=== PATIENT | male | born 1985 | race Caucasian/White ===

== ENCOUNTER → 2017-06-02 | Outpatient (CLI) | payer OTHER ==
[~2017-06-02] MED LIST: ANTIBIOTIC O500 U/GM; AUGMENTIN 875 M1 TA1 PO; BACITRACIN-NEO0.9 GM T; CLONIDINE0.1 MG PO; CORTISPORIN 1%-10 M1 OT; DARVOCET N 1001 TAB PO; KEFLEX500 MG PO; NKHM; PERCOCET 325 MG1 TA2 PO; PERCOCET 325 MG1 TA7 PO; VASOTEC10 MG PO
[2017-06-02 16:03] LABS: BASO # 0.1 10*3/uL (0.0-0.1); BASO % 0.6 % (0.0-1.0); EOS # 0.1 10*3/uL (0.0-0.4); EOS % 0.9 % (1.0-4.0); HEMATOCRIT 49.2 % (42.0-52.0); HEMOGLOBIN 16.7 g/dl (14.0-18.0); LYMPH # 2.1 10*3/uL (1.3-4.4); LYMPH % 17.6 % (27.0-41.0); MEAN CELL VOLUME 84.8 fl (80.0-94.0); MEAN CORPUSCULAR HGB 28.8 pg (27.0-31.0); MEAN CORPUSCULAR HGB CONC 33.9 g/dl (33.0-37.0); MEAN PLATELET VOLUME 10.5 fl (9.6-12.3); MONO # 0.6 10*3/uL (0.1-1.0); NEUT # 8.8 10*3/uL (2.3-7.9); NEUT % 75.4 % (47.0-73.0); PLATELET COUNT AUTOMATED 308 10*3/uL (130-400); RED CELL DISTRI WIDTH 13.2 % (0-14.5); WHITE BLOOD COUNT 11.6 10*3/uL (4.8-10.8)
[2017-06-02 16:22] LABS: ALBUMIN 4.3 gm/dl (3.1-4.5); BUN 11 mg/dl (7-24); CHLORIDE 103 mmol/L (98-107); POTASSIUM 3.6 mmol/L (3.5-5.1); SODIUM 141 mmol/L (136-145)
[2017-06-02 16:35] LABS: ALKALINE PHOSPHATASE 115 U/L (45-117); CHOLESTEROL 280 mg/dL (<200); CREATININE 1.05 mg/dL (0.70-1.30); HDL CHOLESTEROL 44 mg/dl (40-60); LDL CHOLESTEROL 202 mg/dL (9-159); SGOT/AST 27 IU/L (3-35); SGPT/ALT 45 U/L (12-78); TOTAL PROTEIN 8.2 gm/dL (6.4-8.2); TRIGLYCERIDES 171 mg/dl (<150); VLDL CHOLESTEROL 34 mg/dL (6-40)
== END | disposition home or self-care (01) ==
LOC: LAB 15:30
PROVIDERS: Internal Medicine
DX: I10 Essential (primary) hypertension (principal); E66.01 Morbid (severe) obesity due to excess calories; R94.31 Abnormal electrocardiogram [ECG] [EKG]; F15.90 Other stimulant use, unspecified, uncomplicated; Z79.899 Other long term (current) drug therapy

== ENCOUNTER → 2017-07-01 | Outpatient (CLI) | payer OTHER | END | disposition home or self-care (01) | LOC: CARD 01:32 | DX: I08.1 Rheumatic disorders of both mitral and tricuspid valves (principal); I10 Essential (primary) hypertension; E78.01 Familial hypercholesterolemia; R94.31 Abnormal electrocardiogram [ECG] [EKG]; Z79.899 Other long term (current) drug therapy ==

== ENCOUNTER 2017-08-06 16:42 | Emergency (ER) | payer OTHER ==
[~2017-08-06] VITALS: Ht 152.4 cm; Wt 136.1 kg
[2017-08-06 17:01] LABS: BILIRUBIN NEGATIVE (NEGATIVE); BLOOD NEGATIVE (NEGATIVE); CLARITY CLEAR (CLEAR); COLOR YELLOW (YELLOW); GLUCOSE NEGATIVE (NEGATIVE); KETONE NEGATIVE (NEGATIVE); LEUKO ESTERASE NEGATIVE (NEGATIVE); NITRITE NEGATIVE (NEGATIVE); PH 5.5 (5.0-9.0); SPECIFIC GRAVITY >= 1.030 (1.005-1.030); UROBILINOGEN 0.2 E.U./dl (0.2-1.0)
[2017-08-06 17:07] LABS: URINE AMPHETAMINES > 1000 (1000ng/ml); URINE BARBITURATES < 200 (200ng/ml); URINE BENZODIAZEPINES > 200 (200ng/ml); URINE CANNABINOIDS (THC) > 50 (50ng/ml); URINE COCAINE < 300 (300ng/ml); URINE METHADONE < 300 (300ng/ml); URINE OPIATES < 300 (300ng/ml)
[2017-08-06 17:08] LABS: URINE PHENCYCLIDINE < 25 (25ng/ml)
[2017-08-06 17:10] LABS: BACTERIA 2+; EPITHELIAL CELLS 0-2; MUCOUS TRACE; RBC 0-2 rbc/hpf (0-2)
[2017-08-06 17:23] LABS: ACT PARTIAL THROMBO TIME 21.8 SECONDS (20.8-31.5); INTERNATIONAL NORM RATIO 1.2 (2.0-3.5)
[2017-08-06 17:32] LABS: ALBUMIN 3.7 gm/dl (3.1-4.5); ALKALINE PHOSPHATASE 127 U/L (45-117); BUN 13 mg/dl (7-24); CHLORIDE 102 mmol/L (98-107); SGOT/AST 856 IU/L (3-35); SGPT/ALT 881 U/L (12-78); SODIUM 143 mmol/L (136-145); TOTAL PROTEIN 7.5 gm/dL (6.4-8.2)
[2017-08-06 17:33] LABS: ETHYL ALCOHOL < 3.0 mg/dl (<3)
[2017-08-06 17:34] LABS: ACETAMINOPHEN (TYLENOL) < 2.0 ug/ml (10-30)
[2017-08-06 17:43] LABS: HEMATOCRIT 48.9 % (42.0-52.0); MEAN CELL VOLUME 94.4 fl (80.0-94.0); MEAN CORPUSCULAR HGB CONC 30.7 g/dl (33.0-37.0); MEAN PLATELET VOLUME 10.9 fl (9.6-12.3); NUCLEATED RED BLOOD CELL 0.1 % (0.0-0.0); PLATELET COUNT AUTOMATED 436 10*3/uL (130-400); RED BLOOD COUNT 5.18 10*6/uL (4.50-5.90); RED CELL DISTRI WIDTH 13.4 % (0-14.5); WHITE BLOOD COUNT 31.6 10*3/uL (4.8-10.8)
[2017-08-06] MEDS ORDERED: AMITRIPTYLINE50 MG PO (17:59)
[2017-08-06] MEDS ORDERED: LEXAPRO20 MG PO (18:00)
[2017-08-06] MEDS ORDERED: LAMICTAL ODT100 MG MM (18:00)
[2017-08-06 18:04] LABS: PLATELET SUFFICIENCY HIGH (NORMAL); TOTAL CELLS COUNTED 100 #CELLS
[2017-08-06 18:05] LABS: POLYCHROMASIA SLIGHT
== END 2017-08-06 21:25 | disposition short-term general hospital (02) ==
LOC: ED 16:42
PROVIDERS: Emergency Medicine
DX: A41.89 Other specified sepsis (principal); R65.21 Severe sepsis with septic shock; T50.991A Poisoning by other drugs, medicaments and biological substances, accidental (unintentional), initial encounter; T17.898A Other foreign object in other parts of respiratory tract causing other injury, initial encounter; J96.90 Respiratory failure, unspecified, unspecified whether with hypoxia or hypercapnia; F12.10 Cannabis abuse, uncomplicated; E66.01 Morbid (severe) obesity due to excess calories; Z79.899 Other long term (current) drug therapy; Z91.030 Bee allergy status; Z91.040 Latex allergy status; Y92.9 Unspecified place or not applicable

== ENCOUNTER 2017-09-25 21:55 | Inpatient (IN) | payer OTHER ==
[~2017-09-25] VITALS: Ht 187.9 cm; Wt 152.9 kg
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
--- NOTE | ~2017-09-25 | PR ---
[place], [place] PROGRESS NOTE NAME: [facility]MANUEL [id number] UNIT #: [id number] ROOM: 419 DOCTOR: FAITH LADD,MARIEL Allison BIRTHDATE: [birth year] DOS: 09/26/2017 Via the [facility] One Call Transfer Service Line, the care team here did discuss the case with Dr. Hurd and with Dr. Adam, the orthopedic surgeon [facility]. They are aware of my plan to surgically irrigate and debride the hip joint here locally and then transfer the patient to their care at [facility]. They endorse that plan and are on board with it. Mariel Cuevas MD CM:PNTRANS [id number] MARIEL CUEVAS MD 09/26/17 2159 interface
--- NOTE | ~2017-09-25 | PR ---
[place], [place] PROGRESS NOTE NAME: [facility]EL [facility] [id number] UNIT #: [id number] ROOM: 419 DOCTOR: KINZA BADILLO MD BIRTHDATE: [birth year] DOS: 09/25/2017 This is a followup from inpatient consult note. I did talk to the radiology physician by phone immediately following my interview with Sofiya Emanuel this morning. I quickly put a hip CT scan and hip aspiration fluoroscopy guided as orders, via the nurse, Baylee, into the computer system. I personally called down and discussed the case with Dr. Rodriguez, the radiology physician to facilitate getting the case done as soon as possible. After the aspiration, I did communicate with Dr. Rodriguez directly by phone. He aspirated back pus and therefore, the patient, by definition, has a right septic hip joint. I did instruct that the aspirate be sent for Gram stain, culture, cell count, and crystals. I did talk to Sofiya about the pulse in his hip joint. Naturally, he is upset. I did also let him know that, unfortunately, [place] has no orthopedic surgeon foundation engineer this weekend. I was foundation engineer this week ending on Friday today. I am not here this weekend. My colleague, Dr. Pereira, is also not here this weekend. Therefore, [place] has no orthopedic surgeon this weekend. I do not think it is safe for the patient to stay in this hospital without orthopedic surgery coverage. My plan is to perform an irrigation and debridement of the hip joint via surgery in the operating room today as soon as possible. My plan is to transfer the patient to [facility] after the surgery where he can recover under the watchful eye of orthopedic surgeons there. The patient may need a second or third surgical procedure and this way, he is in the right place to have that care if needed. I did talk to Sofiya about the possibility of simply transferring him without performing the surgery. Sofiya actually preferred this because he did not want to have surgery and then have a long ambulance ride. However, I was able to talk him out of that. I explained to him that time is of the essence with an infection, and the sooner we can get into the hip joint to wash it out the better. He understands. I did talk to Sofiya about the risks of this infection already, at baseline, he has got degenerative hip arthritis. His x-ray is far advanced arthrosis beyond his age. Having an infection and an already degenerative hip, puts him at even worse prognosis. There is a significant hip morbidity following this event, accelerated arthritis, chronic hip pain, osteomyelitis, need for multiple washouts, need for Girdlestone arthroplasty, need for hip fusion, need for resection arthroplasty, or all possible complications. The patient understands. He understands this is a severe infection in the hip based on the fact that kaleb pus was aspirated. He is also aware that his baseline hip function is poor based on the x-ray and therefore he has got a high risk for complication. Other risks of complications include blood clot, pulmonary embolus, and other risks. The patient does have a history of MRSA. He had a MRSA infection in his right ankle in 2008. This led to multiple surgeries and ultimately fusion in his [place], [place] PROGRESS NOTE NAME: [facility]EL [facility] [id number] UNIT #: [id number] ROOM: 419 DOCTOR: KINZA BADILLO MD BIRTHDATE: [birth year] right ankle. The fact that he had difficult time with MRSA portends a worse prognosis as well regarding his right hip. I did review all the risks and benefits with the patient. My proposed plan is irrigation and debridement today in the operating room as soon as possible, followed by transfer to [facility]. The patient agrees with this plan. He is aware of the risks. Sofiya had the opportunity to ask me questions and he understands and agrees with the treatment plan as I have outlined it. Kinza Badillo MD CM:PNTRANS [id number] KINZA BADILLO MD 09/26/172131 interface
--- NOTE | ~2017-09-25 | O ---
[place], [place] OPERATIVE NOTE NAME: SOFIYA EMANUEL UNIT #: [id number] ROOM: 419 DOCTOR: MARIEL CUEVAS MD BIRTHDATE: [birth year] DOS: 09/26/2017 PREOPERATIVE DIAGNOSIS: Right septic hip joint. POSTOPERATIVE DIAGNOSIS: Right septic hip joint. SPECIMENS: 1. Right hip joint pus sent for aerobic and anaerobic culture. 2. Right hip synovial tissue sent to pathology. 3. Right hip synovial tissue sent to microbiology for aerobic and anaerobic culture. ANESTHESIA: General. BLOOD LOSS: 75 mL. ATTENDING PHYSICIAN: Mariel Cuevas M.D. INDICATIONS: This is a pleasant 32-year-old man who presented last evening with a right septic hip joint. Of note, I received the consult around 8:00 a.m. in the morning. I saw the patient within minutes of obtaining the consult. I identified this is potentially septic hip joint. Immediately, I was on the phone with Radiology coordinating a hip CT and a fluoro-guided joint aspiration. I personally conversed with the radiology physician after the procedure. He did aspirate gross pus. At that point, I booked the case in the operating room for a right hip irrigation and debridement. There was a little bit of a delay because the patient was refusing surgery. I did have two conversations with him over the space about an hour. I was able to convince him that surgical irrigation and debridement was in his best interest. Of note, there is no Orthopedic Surgery recovery at [facility] this weekend. Therefore, the patient cannot stay at this hospital tonight and need to be transferred to [facility] in [place]. This is the hospital of the patient's choice as he has been there before. I did talk to Dr. Sharpe, the one call Critical access hospital physician. I talked to her personally and gave her my cell phone number, . I want to make sure that their care team can contact me at any time with any questions or concerns. I did clear my plan with the [facility] team including Dr. Adam of Orthopedic Surgery. My plan is that I performed the irrigation and debridement here on site given the fact that this is a septic hip and is an orthopedic emergency. After the patient comes out of surgery, he will be transferred to [facility] to recover. He may need another washout. He may need further surgical procedure that he can recover under their care. I cannot leave him here postop because there is no orthopedic surgeon here to covering. Therefore, the plan was irrigation and debridement here by me followed by transfer to [facility] for recovery. The [facility] team has given their blessing for this. I did explain this plan to the patient as well. I also explained that I am here in [place] about [address] Periera is usually here on the other [place], [place] OPERATIVE NOTE NAME: SOFIYA EMANUEL UNIT #: [id number] ROOM: 419 DOCTOR: MARIEL CUEVAS MD BIRTHDATE: [birth year] weeks, but sometimes there is no orthopedic surgeon. The patient is aware of this. He wants to proceed here with surgery for me after I explained how serious septic hip joint is. I explained a septic hip is an orthopedic emergency. I explained that he already has degenerative arthritis in his hip and therefore, given the fact he has got septic arthritis, he can expect to have much worse hip function. The risk here is for very bad arthritis, osteomyelitis, spread of the infection to bone, chronic pain, need for a second or third surgical procedure, blood clot, pulmonary embolus and other risks. Of note, he has got a history of morbid obesity. He weighs over 350 pounds with a BMI over 40. He also has a superficial leg wound on his left leg. He also has a history of MRSA infection in his right ankle, which led to multiple surgeries, tissue transfers and an ankle fusion. All of this puts him at a much higher risk for worse complication. It is very likely he never has a normal hip joint again and that he has got permanent disability here. He may need early total hip replacement or even a hip fusion or a Girdlestone resection arthroplasty. I explained all this to the patient. He had the opportunity to ask any questions. He understands how severe it is. He understands the need for transfer after surgery. He understands the need to proceed immediately right now with me in this hospital since time is of the essence due to the fact that it is an infection. His questions were answered. He understands and agrees with the treatment as outlined. Informed consent was signed at the bedside for right hip irrigation and debridement. DESCRIPTION OF PROCEDURE: The patient was identified as correct patient in preoperative holding area. He identified the right hip as correct site. I marked the right hip. He was brought back to the operating theater where anesthesia was induced without complication. All bony prominences were appropriately padded. He was placed into a lateral position with the left side down and the right side up. The right leg was prepped and draped in a sterile fashion. Antibiotics were held. (The patient has been on IV antibiotics since admission, but I held preoperative antibiotics until after cultures). A timeout was performed confirming correct patient, correct laterality and correct procedure. I made the skin incision directly over the greater trochanter extending it in line with the femur. I dissected just the soft tissues directed to the level of the IT band. I opened IT band in line with the skin incision. I then split the abductors a 50:50 and easily identified the gluteus minimus and the hip capsule. I then progressively externally rotated the leg and peeled off of this anterior sleeve of tissues exposing the hip joint capsule. At this point, we then opened the hip joint capsule and immediate pus flowed out of the hip joint. I used a culture tube and cultured the fluid. I then released the capsule all the way up the neck to the femoral head. I made sure to dissect so that I could see both inferior and superior edges of the intracapsular femoral neck. I also could visualize the femoral head. I was rotating the hip and could feel the acetabulum and the femoral head. Therefore, I was sure that had a great decompression of the hip joint. Again, a lot of pus flowed out of the hip joint. I also progressively externally rotated and internally rotated and flexed and extended the hip to really get as much as we could. At this point, I then used pulse lavage and washed out the hip joint with 6 liters of irrigation fluid. During washout, I made sure to ultimately the position of the [place], [place] OPERATIVE NOTE NAME: SOFIYA EMANUEL J UNIT #: [id number] ROOM: [facility] DOCTOR: MARIEL CUEVAS MD BIRTHDATE: [birth year] between the femoral head, the superior femoral neck and the inferior femoral neck. I also progressively moved around the hip to make sure I washed out as much of the hip joint pus as possible. At this point, I took a look in the hip joint and there was no more pus. The hip was moving well. I then closed the capsule with #5 Ethibond interrupted. I then closed the abductors with interrupted #5 Ethibond. I then closed the IT band with interrupted #5 Ethibond. Subcutaneous tissues were closed with 0 Vicryl and 2-0 Vicryl. Skin was then stapled. A sterile dressing was applied. He tolerated the procedure well with no immediate complications. The patient is said to be transferred to [facility] once he stabilizes. My cell phone number is [phone]. [facility] can contact me at any time with any questions or concerns including if they have trouble tracking down data or tracking down cultures I can help with that. I did express to Dr. Sharpe, of one call at [facility], so that she understands. The patient is a very high risk for complications as noted above. Postop plan is as follows: 1. Touchdown weightbearing right lower extremity. 2. DVT prophylaxis per the hospitalist service. 3. Transferred to [facility] when stable, the hospitalist services coordinating this. 4. The patient remains at high risk for complication. Mariel Cuevas MD CM:OPRECORD:OPERATIVE NOTE [id number] MARIEL CUEVAS MD 10/01/17 1413 interface
[~2017-09-25 21:55] MED LIST changes: +AMITRIPTYLINE50 MG PO; +LAMICTAL ODT100 MG MM; +LEXAPRO20 MG PO
[2017-09-25 22:39] LABS: BASO # 0.1 10*3/uL (0.0-0.1); BASO % 0.4 % (0.0-1.0); EOS # 0.3 10*3/uL (0.0-0.4); EOS % 1.5 % (1.0-4.0); HEMATOCRIT 41.5 % (42.0-52.0); HEMOGLOBIN 13.6 g/dl (14.0-18.0); LYMPH # 2.1 10*3/uL (1.3-4.4); LYMPH % 12.2 % (27.0-41.0); MEAN CELL VOLUME 86.8 fl (80.0-94.0); MEAN CORPUSCULAR HGB 28.5 pg (27.0-31.0); MEAN CORPUSCULAR HGB CONC 32.8 g/dl (33.0-37.0); MEAN PLATELET VOLUME 10.7 fl (9.6-12.3); MONO % 5.6 % (3.0-9.0); NEUT # 13.5 10*3/uL (2.3-7.9); PLATELET COUNT AUTOMATED 333 10*3/uL (130-400); RED BLOOD COUNT 4.78 10*6/uL (4.50-5.90); RED CELL DISTRI WIDTH 12.7 % (0-14.5); WHITE BLOOD COUNT 16.9 10*3/uL (4.8-10.8)
[2017-09-25 22:58] LABS: ALBUMIN 3.9 gm/dl (3.1-4.5); ALKALINE PHOSPHATASE 132 U/L (45-117); BUN 6 mg/dl (7-24); CHLORIDE 107 mmol/L (98-107); CREATININE 0.92 mg/dL (0.70-1.30); POTASSIUM 3.2 mmol/L (3.5-5.1); SGOT/AST 13 IU/L (3-35); SGPT/ALT 20 U/L (12-78); SODIUM 140 mmol/L (136-145); TOTAL PROTEIN 7.6 gm/dL (6.4-8.2)
[2017-09-25 23:51] VITALS: BP 167/77
[2017-09-26] VITALS (11 sets, daily range): BP systolic 129–170; BP diastolic 53–111
[2017-09-26 06:03] LABS: ALBUMIN 3.3 gm/dl (3.1-4.5); ALKALINE PHOSPHATASE 117 U/L (45-117); BUN 5 mg/dl (7-24); CHLORIDE 107 mmol/L (98-107); CHOLESTEROL 132 mg/dL (<200); CREATININE 0.76 mg/dL (0.70-1.30); HDL CHOLESTEROL 45 mg/dl (40-60); LDL CHOLESTEROL 73 mg/dL (9-159); PHOSPHOROUS 2.8 mg/dL (2.5-4.9); POTASSIUM 3.5 mmol/L (3.5-5.1); SGOT/AST 12 IU/L (3-35); SGPT/ALT 15 U/L (12-78); SODIUM 142 mmol/L (136-145); TOTAL PROTEIN 6.5 gm/dL (6.4-8.2); TRIGLYCERIDES 68 mg/dl (<150); VLDL CHOLESTEROL 14 mg/dL (6-40)
[2017-09-26 06:12] LABS: TROPONIN I < 0.015 ng/ml (<0.045)
[2017-09-26] MEDS ORDERED: METOPROLOL TART50 M1 PO (10:11)
[2017-09-26] MEDS ORDERED: HYDROCHLOROTHIA25 M1 PO (10:11)
[2017-09-26] MEDS ORDERED: ZESTRIL20 MG PO (10:12)
[2017-09-26] MEDS ORDERED: LIPITOR40 MG PO (10:12)
[2017-09-26] MEDS ORDERED: REXULTI3 MG PO ×2 (10:13→10:25)
[2017-09-26] MEDS ORDERED: ADDERALL 20 MG20 MG PO ×2 (10:19→10:24)
[2017-09-26] MEDS ORDERED: VALIUM10 MG PO (10:24)
[2017-09-26] MEDS ORDERED: LAMICTAL100 MG PO (10:25)
[2017-09-26] MEDS ORDERED: LEXAPRO20 MG PO (10:25)
[2017-09-26 13:39] LABS: BF MONOCYTES 1 %; BF NEUTROPHILS 99 %
[2017-09-26 13:40] LABS: BODY FLUID WBC 82125 /uL
== END 2017-09-26 20:54 | disposition short-term general hospital (02) | DRG 872 ==
LOC: ED 21:55 → 4E 23:32 → EDHOLD 23:32 → 4E 23:58
PROVIDERS: Internal Medicine Hospice and Palliative Medicine; Orthopaedic Surgery; Physician Assistant
PROC: 0S993ZZ Drainage of Right Hip Joint, Percutaneous Approach (ICD-10-PCS; principal; 2017-09-26)
DX: A41.9 Sepsis, unspecified organism (principal); M00.9 Pyogenic arthritis, unspecified; G90.50 Complex regional pain syndrome I, unspecified; F32.9 Major depressive disorder, single episode, unspecified; F98.8 Other specified behavioral and emotional disorders with onset usually occurring in childhood and adolescence; I10 Essential (primary) hypertension; F41.1 Generalized anxiety disorder; E78.5 Hyperlipidemia, unspecified; E78.2 Mixed hyperlipidemia; M06.9 Rheumatoid arthritis, unspecified; E66.01 Morbid (severe) obesity due to excess calories; R00.0 Tachycardia, unspecified; D72.810 Lymphocytopenia; D64.9 Anemia, unspecified; E87.6 Hypokalemia; R73.9 Hyperglycemia, unspecified; R74.8 Abnormal levels of other serum enzymes; R70.0 Elevated erythrocyte sedimentation rate; M15.9 Polyosteoarthritis, unspecified; Z91.030 Bee allergy status; Z91.040 Latex allergy status; Z82.49 Family history of ischemic heart disease and other diseases of the circulatory system; Z79.899 Other long term (current) drug therapy; Z72.89 Other problems related to lifestyle

== ENCOUNTER → 2017-10-28 | Outpatient (CLI) | payer OTHER ==
[~2017-10-28] MED LIST changes: +ADDERALL 20 MG20 MG PO; +HYDROCHLOROTHIA25 M1 PO; +LAMICTAL100 MG PO; +LIPITOR40 MG PO; +METOPROLOL TART50 M1 PO; +REXULTI3 MG PO; +VALIUM10 MG PO; +ZESTRIL20 MG PO
== END | disposition home or self-care (01) ==
LOC: ORTHO 00:54
DX: M25.551 Pain in right hip (principal)

== ENCOUNTER → 2017-11-21 | Outpatient (CLI) | payer OTHER ==
[2017-11-21 15:41] LABS: BASO # 0.1 10*3/uL (0.0-0.1); BASO % 0.5 % (0.0-1.0); EOS # 0.3 10*3/uL (0.0-0.4); EOS % 2.4 % (1.0-4.0); HEMATOCRIT 41.7 % (42.0-52.0); HEMOGLOBIN 13.5 g/dl (14.0-18.0); LYMPH # 2.1 10*3/uL (1.3-4.4); LYMPH % 17.3 % (27.0-41.0); MEAN CORPUSCULAR HGB 27.8 pg (27.0-31.0); MEAN CORPUSCULAR HGB CONC 32.4 g/dl (33.0-37.0); MEAN PLATELET VOLUME 10.8 fl (9.6-12.3); MONO # 0.5 10*3/uL (0.1-1.0); MONO % 4.4 % (3.0-9.0); NEUT % 75.1 % (47.0-73.0); PLATELET COUNT AUTOMATED 309 10*3/uL (130-400); RED BLOOD COUNT 4.85 10*6/uL (4.50-5.90); RED CELL DISTRI WIDTH 12.8 % (0-14.5)
== END | disposition home or self-care (01) ==
LOC: LAB 02:15 → ORTHO 02:15
PROVIDERS: Orthopaedic Surgery
DX: E78.5 Hyperlipidemia, unspecified (principal); T81.4XXD Infection following a procedure, subsequent encounter; Z68.42 Body mass index [BMI] 45.0-49.9, adult

== ENCOUNTER 2017-11-25 22:20 | Emergency (ER) | payer OTHER ==
[~2017-11-25] VITALS: Ht 187.9 cm; Wt 163.3 kg
[2017-11-26 00:35] LABS: BASO # 0.1 10*3/uL (0.0-0.1); BASO % 0.6 % (0.0-1.0); EOS # 0.3 10*3/uL (0.0-0.4); EOS % 2.8 % (1.0-4.0); HEMATOCRIT 38.7 % (42.0-52.0); HEMOGLOBIN 12.7 g/dl (14.0-18.0); LYMPH # 3.3 10*3/uL (1.3-4.4); LYMPH % 31.8 % (27.0-41.0); MEAN CELL VOLUME 85.4 fl (80.0-94.0); MEAN CORPUSCULAR HGB CONC 32.8 g/dl (33.0-37.0); MEAN PLATELET VOLUME 10.6 fl (9.6-12.3); MONO # 0.6 10*3/uL (0.1-1.0); MONO % 5.7 % (3.0-9.0); NEUT # 6.1 10*3/uL (2.3-7.9); NEUT % 58.7 % (47.0-73.0); PLATELET COUNT AUTOMATED 325 10*3/uL (130-400); RED BLOOD COUNT 4.53 10*6/uL (4.50-5.90); RED CELL DISTRI WIDTH 12.9 % (0-14.5); WHITE BLOOD COUNT 10.3 10*3/uL (4.8-10.8)
[2017-11-26 00:50] LABS: ALBUMIN 3.5 gm/dl (3.1-4.5); ALKALINE PHOSPHATASE 131 U/L (45-117); BUN 10 mg/dl (7-24); CHLORIDE 106 mmol/L (98-107); CREATININE 1.12 mg/dL (0.70-1.30); POTASSIUM 3.1 mmol/L (3.5-5.1); SGOT/AST 18 IU/L (3-35); SGPT/ALT 30 U/L (12-78); SODIUM 143 mmol/L (136-145)
== END 2017-11-26 01:24 | disposition home or self-care (01) ==
LOC: ED 22:20
PROVIDERS: Nurse Practitioner
DX: M79.2 Neuralgia and neuritis, unspecified (principal); M25.551 Pain in right hip; Z91.030 Bee allergy status; Z79.899 Other long term (current) drug therapy

== ENCOUNTER 2018-03-25 09:01 | Emergency (ER) | payer OTHER ==
[~2018-03-25] VITALS: Ht 190.5 cm; Wt 149.7 kg
[2018-03-25] MEDS ORDERED: NORCO 5-325 TA1 EACH PO (11:20)
[2018-03-25] MEDS ORDERED: NAPROSYN500 MG PO (11:20)
== END 2018-03-25 14:25 | disposition home or self-care (01) ==
LOC: ED 09:01
DX: S42.251A Displaced fracture of greater tuberosity of right humerus, initial encounter for closed fracture (principal); S43.014A Anterior dislocation of right humerus, initial encounter; I10 Essential (primary) hypertension; E66.1 Drug-induced obesity; Z91.030 Bee allergy status; Z91.041 Radiographic dye allergy status; Z79.899 Other long term (current) drug therapy; W03.XXXA Other fall on same level due to collision with another person, initial encounter; Y93.89 Activity, other specified; Y92.89 Other specified places as the place of occurrence of the external cause; Y99.8 Other external cause status

== ENCOUNTER → 2020-01-24 | Outpatient (CLI) | payer OTHER ==
[~2020-01-24] MED LIST changes: +NAPROSYN500 MG PO; +NORCO 5-325 TA1 EACH PO
== END | disposition home or self-care (01) ==
LOC: CARD 08:35
DX: F43.23 Adjustment disorder with mixed anxiety and depressed mood (principal); F40.01 Agoraphobia with panic disorder; F90.9 Attention-deficit hyperactivity disorder, unspecified type; F43.10 Post-traumatic stress disorder, unspecified; F31.81 Bipolar II disorder

== ENCOUNTER 2020-08-10 15:50 | Observation (INO) | payer OTHER ==
[~2020-08-10] VITALS: Ht 187.9 cm; Wt 192.8 kg
[2020-08-10 15:54] VITALS: BP 132/72
[2020-08-10 16:47] LABS: BASO # 0.1 10*3/uL (0.0-0.1); BASO % 0.5 % (0.0-1.0); EOS # 0.1 10*3/uL (0.0-0.4); EOS % 0.5 % (1.0-4.0); HEMATOCRIT 42.9 % (42.0-52.0); LYMPH # 1.9 10*3/uL (1.3-4.4); LYMPH % 14.2 % (27.0-41.0); MEAN CELL VOLUME 86.1 fl (80.0-94.0); MEAN CORPUSCULAR HGB 27.9 pg (27.0-31.0); MEAN CORPUSCULAR HGB CONC 32.4 g/dl (33.0-37.0); MEAN PLATELET VOLUME 10.3 fl (9.6-12.3); MONO # 0.7 10*3/uL (0.1-1.0); MONO % 5.7 % (3.0-9.0); NEUT # 10.2 10*3/uL (2.3-7.9); NEUT % 78.3 % (47.0-73.0); PLATELET COUNT AUTOMATED 301 10*3/uL (130-400); RED BLOOD COUNT 4.98 10*6/uL (4.50-5.90); RED CELL DISTRI WIDTH 12.4 % (0-14.5); WHITE BLOOD COUNT 13.1 10*3/uL (4.8-10.8)
[2020-08-10 17:04] LABS: ACT PARTIAL THROMBO TIME 24.7 SECONDS (20.0-32.1)
[2020-08-10 17:08] LABS: ALBUMIN 3.6 gm/dl (3.1-4.5); ALKALINE PHOSPHATASE 115 U/L (45-117); BUN 14 mg/dl (7-24); CHLORIDE 107 mmol/L (98-107); CREATININE 1.17 mg/dL (0.70-1.30); POTASSIUM 3.5 mmol/L (3.5-5.1); SGOT/AST 23 IU/L (3-35); SGPT/ALT 48 U/L (12-78); SODIUM 141 mmol/L (136-145); TOTAL PROTEIN 7.2 gm/dL (6.4-8.2)
[2020-08-10 17:11] LABS: TROPONIN I < 0.015 ng/ml (<0.045)
[2020-08-10 17:23] VITALS: BP 133/80
[2020-08-10 18:54] VITALS: BP 130/76
[2020-08-10 21:09] VITALS: BP 127/85
[2020-08-11] VITALS: BP 128/72
[2020-08-11 06:30] LABS: BASO # 0.1 10*3/uL (0.0-0.1); BASO % 0.4 % (0.0-1.0); EOS # 0.1 10*3/uL (0.0-0.4); EOS % 0.8 % (1.0-4.0); HEMATOCRIT 40.4 % (42.0-52.0); LYMPH # 2.2 10*3/uL (1.3-4.4); LYMPH % 19.8 % (27.0-41.0); MEAN CELL VOLUME 87.6 fl (80.0-94.0); MEAN CORPUSCULAR HGB 27.8 pg (27.0-31.0); MEAN CORPUSCULAR HGB CONC 31.7 g/dl (33.0-37.0); MEAN PLATELET VOLUME 10.1 fl (9.6-12.3); MONO # 0.6 10*3/uL (0.1-1.0); MONO % 5.7 % (3.0-9.0); NEUT # 8.2 10*3/uL (2.3-7.9); NEUT % 72.9 % (47.0-73.0); PLATELET COUNT AUTOMATED 265 10*3/uL (130-400); RED BLOOD COUNT 4.61 10*6/uL (4.50-5.90); RED CELL DISTRI WIDTH 12.6 % (0-14.5); WHITE BLOOD COUNT 11.3 10*3/uL (4.8-10.8)
[2020-08-11 06:47] LABS: ALBUMIN 3.4 gm/dl (3.1-4.5); BUN 12 mg/dl (7-24); CHLORIDE 106 mmol/L (98-107); CHOLESTEROL 178 mg/dL (<200); POTASSIUM 3.5 mmol/L (3.5-5.1); SGOT/AST 23 IU/L (3-35); SGPT/ALT 45 U/L (12-78); SODIUM 142 mmol/L (136-145)
[2020-08-11 06:54] LABS: ALKALINE PHOSPHATASE 103 U/L (45-117); FREE T4 0.84 ng/dl (0.76-1.46); HDL CHOLESTEROL 57 mg/dl (40-60); LDL CHOLESTEROL 105 mg/dL (9-159); TOTAL PROTEIN 6.7 gm/dL (6.4-8.2); TRIGLYCERIDES 82 mg/dl (<150); VLDL CHOLESTEROL 16 mg/dL (6-40)
[2020-08-11 08:00] VITALS: BP 160/82
[2020-08-11 08:07] LABS: VITAMIN D, 25-HYDROXY 12.3 ng/mL (30-100)
[2020-08-11 08:20] LABS: URINE AMPHETAMINES < 1000 (1000ng/ml); URINE BARBITURATES < 200 (200ng/ml); URINE BENZODIAZEPINES < 200 (200ng/ml); URINE CANNABINOIDS (THC) > 50 (50ng/ml); URINE COCAINE < 300 (300ng/ml); URINE METHADONE < 300 (300ng/ml); URINE OPIATES > 300 (300ng/ml)
[2020-08-11 08:34] LABS: URINE PHENCYCLIDINE < 25 (25ng/ml)
[2020-08-11 12:00] VITALS: BP 150/87
== END 2020-08-11 15:40 | disposition home or self-care (01) ==
LOC: ED 15:50 → EDHOLD 18:04 → 5E 18:04 → EDHOLD 18:04 → 5E 19:33
PROVIDERS: Emergency Medicine; Hospitalist; ADMIT Student in an Organized Health Care Education/Training Program; ATTEND Student in an Organized Health Care Education/Training Program
DX: R07.89 Other chest pain (principal); I10 Essential (primary) hypertension; F31.9 Bipolar disorder, unspecified; F41.9 Anxiety disorder, unspecified; F90.9 Attention-deficit hyperactivity disorder, unspecified type; E78.2 Mixed hyperlipidemia; M06.9 Rheumatoid arthritis, unspecified; E66.01 Morbid (severe) obesity due to excess calories; M19.90 Unspecified osteoarthritis, unspecified site; F98.8 Other specified behavioral and emotional disorders with onset usually occurring in childhood and adolescence; D72.829 Elevated white blood cell count, unspecified; F17.210 Nicotine dependence, cigarettes, uncomplicated; R73.9 Hyperglycemia, unspecified; Z98.890 Other specified postprocedural states; Z79.899 Other long term (current) drug therapy

== ENCOUNTER → 2023-10-10 | Outpatient (CLI) | payer OTHER | END | disposition home or self-care (01) | LOC: US 07:25 | PROVIDERS: ATTEND Family Medicine | DX: K76.0 Fatty (change of) liver, not elsewhere classified (principal); R16.0 Hepatomegaly, not elsewhere classified ==

== ENCOUNTER → 2023-10-29 | Outpatient (CLI) | payer OTHER | END | disposition home or self-care (01) | LOC: LAB 09:29 | PROVIDERS: ATTEND Student in an Organized Health Care Education/Training Program | DX: R74.01 Elevation of levels of liver transaminase levels (principal) ==